=== PATIENT | female | born 1990 | race Caucasian/White ===

== ENCOUNTER → 2016-12-10 | Outpatient (CLI) | payer MEDICAID ==
[~2016-12-10] MED LIST: DOCU-131 PO; HYDR-3240 PO; IBUP-1222 PO
== END | disposition home or self-care (01) ==
LOC: CFH 11:14
PROVIDERS: ATTEND Nurse Practitioner Family
DX: M54.2 Cervicalgia (principal)
CPT/HCPCS: 72050